=== PATIENT | male | born 1965 | race Caucasian/White ===

== ENCOUNTER 2022-04-04 04:56 | Emergency (ER) | payer BC, SELFPAY ==
[2022-04-04] VITALS (16 sets, daily range): BP systolic 125–189; BP diastolic 82–121; PULSE 53–92; RESP 9–28; O2SAT 95–100; BMI 29.6
--- NOTE | 2022-04-04 05:13 | XR_ITS ---
Final Report Patient: LEONEL ORANTES Facility:?[facility] Patient ID:?[id number] Site Patient ID:?[id number]. Site :?[id number] Study:?XRay Chest -04/04/2022 6:00:01 AM Ordering Physician:?Cheo Snyder Final Report: INDICATION: Chest pain. TECHNIQUE: Chest 1 view. COMPARISON: None. FINDINGS: No focal consolidation, pleural effusion, or pneumothorax. Heart size upper limits of normal. Normal pulmonary vascularity. The bones are unremarkable. IMPRESSION: No acute cardiopulmonary findings. Dictated by Sandi Hernandes MD @ 04/04/2022 6:17:18 AM (Electronic Signature)
[2022-04-04] MEDS: NITROGLYCERIN 0.4 MG TAB.SUBL SUBLINGUAL ×2 (05:15→05:33)
[2022-04-04] MEDS: ASPIRIN 81 MG TAB.CHEW 324 MG PO (05:15)
--- NOTE | 2022-04-04 05:16 | ED_ITS ---
HPI - Chest Pain General Time Seen by Provider: 05:10 <Claudio Grider MD - Last Filed: 04/04/22 08:15> Date Seen: 04/04/22 <Claudio Grider MD - Last Filed: 04/04/22 08:15> Chief Complaint: Chest Pain <Claudio Grider MD - Last Filed: 04/04/22 08:15> Stated Complaint: Chest pain <Claudio Grider MD - Last Filed: 04/04/22 08:15> Time Seen by Provider: 04/04/22 05:07 <Claudio Grider MD - Last Filed: 04/04/22 08:15> Source: patient <Claudio Grider MD - Last Filed: 04/04/22 08:15> Mode of arrival: ambulatory <Claudio Grider MD - Last Filed: 04/04/22 08:15> Limitations: no limitations <Claudio Grider MD - Last Filed: 04/04/22 08:15> History of Present Illness HPI narrative: Sudden onset of midsternal chest pain without radiation that came on at rest. This is associated with diaphoresis but no nausea, vomiting, dyspnea. No previous episodes. Risk factors include male gender and smoking. Blood pressure is elevated but he has no history of hypertension. <Claudio Grider MD - Last Filed: 04/04/22 08:15> MD complaint: chest pain <Claudio Grider MD - Last Filed: 04/04/22 08:15> Onset (ago): hour(s) ( 1 hour ago) <Claudio Grider MD - Last Filed: 04/04/22 08:15> Timing of current episode: constant <Claudio Grider MD - Last Filed: 04/04/22 08:15> Prior episodes: No <Claudio Grider MD - Last Filed: 04/04/22 08:15> Onset: during rest <Claudio Grider MD - Last Filed: 04/04/22 08:15> Pain location: substernal <Claudio Grider MD - Last Filed: 04/04/22 08:15> Pain radiation: none <Claudio Grider MD - Last Filed: 04/04/22 08:15> Severity: severe <Claudio Grider MD - Last Filed: 04/04/22 08:15> Quality: aching and sharp <Claudio Grider MD - Last Filed: 04/04/22 08:15> Relieving factors: nothing <Claudio Grider MD - Last Filed: 04/04/22 08:15> Exacerbating factors: nothing <Claudio Grider MD - Last Filed: 04/04/22 08:15> Associated symptoms: diaphoresis <Claudio Grider MD - Last Filed: 04/04/22 08:15> Treatment prior to arrival: none <Claudio Grider MD - Last Filed: 04/04/22 08:15> Risk Factors Coronary artery disease risk factors: smoking history <Claudio Grider MD - Last Filed: 04/04/22 08:15> Thoracic aortic dissection risk factors: none <Claudio Grider MD - Last Filed: 04/04/22 08:15> Related Data Home Medications: Home Medications Medication Instructions Recorded Confirmed No Known Home Medications 04/04/22 04/04/22 <Claudio Grider MD - Last Filed: 04/04/22 08:15> Allergies/Adverse Reactions: Allergies Allergy/AdvReac Type Severity Reaction Status Date / Time No Known Drug Allergies Allergy Verified 04/04/22 07:00 <Claudio Grider MD - Last Filed: 04/04/22 08:15> Review of Systems Status of ROS Reports: 10 or more systems reviewed and unremarkable except as noted in History and below <Claudio Grider MD - Last Filed: 04/04/22 08:15> [facility] Medical History: Medical History (Updated 04/04/22 @ 08:06 by Claudio Grider MD) Seizure <Claudio Grider MD - Last Filed: 04/04/22 08:15> Surgical History: Surgical History (Updated 04/04/22 @ 05:16 by Claudio Grider MD) No history of previous surgery <Claudio Grider MD - Last Filed: 04/04/22 08:15> Family History: Family History (Updated 04/04/22 @ 05:15 by Claudio Grider MD) Other Coronary artery disease <Claudio Grider MD - Last Filed: 04/04/22 08:15> Social History: Social History (Updated 04/04/22 @ 05:15 by Claudio Grider MD) Narrative: 1/2 pack per day smoker, works at [employer], no local doctor Smoking Status: Current every day smoker What tobacco products do you use: cigarettes Do you use any of these nicotine containing products: None Second hand tobacco smoke exposure: No How often do you have a drink containing alcohol: never AUDIT-C Alcohol total score: 0 Non-prescribed substance use: denies use <Claudio Grider MD - Last Filed: 04/04/22 08:15> Exam Const Vital Signs, click to edit/add: Vital Signs - 24 hr 04/04/22 05:09 04/04/22 05:10 04/04/22 05:12 Pulse Rate [Right] 62 57 L Respiratory Rate 20 17 Blood Pressure [Left Upper Arm] 189/121 H 187/115 H Pulse Oximetry 98 98 95 04/04/22 05:20 04/04/22 05:30 04/04/22 05:40 Pulse Rate [Right] 59 L 56 L 53 L Respiratory Rate 24 9 L 13 Blood Pressure [Left Upper Arm] 138/88 144/102 H 125/82 Pulse Oximetry 95 95 95 04/04/22 05:50 04/04/22 06:00 Pulse Rate [Right] 60 56 L Respiratory Rate 25 H 10 L Blood Pressure [Left Upper Arm] 138/95 H Pulse Oximetry 97 97 Blood pressure is elevated <Claudio Grider MD - Last Filed: 04/04/22 08:15> Documenting provider has reviewed patient's vital signs: yes <Claudio Grider MD - Last Filed: 04/04/22 08:15> Common normals: oriented x3, alert and well nourished <Claudio Grider MD - Last Filed: 04/04/22 08:15> General appearance: cooperative and diaphoretic <Claudio Grider MD - Last Filed: 04/04/22 08:15> Orientation/consciousness: Yes awake, Yes oriented to person, Yes oriented to place and Yes oriented to time <Claudio Grider MD - Last Filed: 04/04/22 08:15> HENDE Common normals: normocephalic, head/scalp atraumatic, hearing grossly normal bilaterally, external ears normal, EAC's normal, TM's normal bilaterally, external nose normal, nasal mucous membranes and turbinates normal, moist oral mucous membranes, oropharynx normal, dentition normal and gingiva normal <Claudio Grider MD - Last Filed: 04/04/22 08:15> Head and scalp: normocephalic and atraumatic <Claudio Grider MD - Last Filed: 04/04/22 08:15> Nose: external nose normal and nasal mucous membranes and turbinates normal <Claudio Grider MD - Last Filed: 04/04/22 08:15> External ear: external ears normal <Claudio Grider MD - Last Filed: 04/04/22 08:15> External auditory canal: EAC's normal <Claudio Grider MD - Last Filed: 04/04/22 08:15> Tympanic membrane: TM's normal bilaterally <Claudio Grider MD - Last Filed: 04/04/22 08:15> Neck & C-Spine Common normals: full ROM, no lymphadenopathy, no JVD, thyroid normal and no carotid bruits <Claudio Grider MD - Last Filed: 04/04/22 08:15> General: normal visual inspection and trachea midline <Claudio Grider MD - Last Filed: 04/04/22 08:15> Thyroid: thyroid normal <Claudio Grider MD - Last Filed: 04/04/22 08:15> Carotids: normal carotid upstroke <Claudio Grider MD - Last Filed: 04/04/22 08:15> Lymph Lymphatic: no lymphadenopathy noted <Claudio Grider MD - Last Filed: 04/04/22 08:15> Chest Common normals: inspection of chest normal and palpation of chest normal <Claudio Grider MD - Last Filed: 04/04/22 08:15> Chest: symmetrical chest wall rise <Claudio Grider MD - Last Filed: 04/04/22 08:15> Resp Common normals: normal respiratory effort and clear to auscultation bilaterally <Claudio Grider MD - Last Filed: 04/04/22 08:15> Effort & inspection: able to speak in complete sentences and symmetric chest movement <Claudio Grider MD - Last Filed: 04/04/22 08:15> Auscultation: clear to auscultation bilaterally <Claudio Grider MD - Last Filed: 04/04/22 08:15> Cardio Common normals: no JVD, regular rate, regular rhythm, S1 normal heart sound, S2 normal heart sound and peripheral pulses 2+ throughout <Claudio Grider MD - Last Filed: 04/04/22 08:15> Rate: regular rate <Claudio Grider MD - Last Filed: 04/04/22 08:15> Rhythm: regular rhythm <Claudio Grider MD - Last Filed: 04/04/22 08:15> Heart sounds: S1 normal and S2 normal <Claudio Grider MD - Last Filed: 04/04/22 08:15> Peripheral pulses: pulses 2+ throughout <Claudio Grider MD - Last Filed: 04/04/22 08:15> GI Common normals: Normal to inspection, nondistended, normoactive bowel sounds present <Claudio Grider MD - Last Filed: 04/04/22 08:15> Auscultation: normoactive bowel sounds <Claudio Grider MD - Last Filed: 04/04/22 08:15> Extremity Common normals: normal to inspection, normal capillary refill and no pedal edema <Claudio Grider MD - Last Filed: 04/04/22 08:15> Neuro Common normals: oriented x3 <Claudio Grider MD - Last Filed: 04/04/22 08:15> Sensorium/orientation: awake, alert, oriented to person, oriented to place and oriented to time <Claudio Grider MD - Last Filed: 04/04/22 08:15> Skin Common normals: no rashes or lesions noted <Claudio Grider MD - Last Filed: 04/04/22 08:15> General skin exam: no rashes or lesions noted <Claudio Grider MD - Last Filed: 04/04/22 08:15> Course Course Hospital Course: patient seen and examined. His history and presentation are consistent with cardiac chest pain. Initial EKG shows normal sinus rhythm with a rate of 60. There is ST elevation in V1 through V3. He is given aspirin 325 mg orally and nitroglycerin 0.4 mg sublingual. Initially we had a difficult time getting an IV. <Claudio Grider MD - Last Filed: 04/04/22 08:15> Reevaluation(s) Reevaluation #1: No pain relief with the initial nitro. Second nitro was given along 2 mg of IV morphine. <Claudio Grider MD - Last Filed: 04/04/22 08:15> Time: 05:36 <Claudio Grider MD - Last Filed: 04/04/22 08:15> Reevaluation #2: After 2nd 2 mg dose of morphine and a GI cocktail his pain is still essentially unchanged he is no longer diaphoretic. His blood pressure has improved. <Claudio Grider MD - Last Filed: 04/04/22 08:15> Time: 06:34 <Claudio Grider MD - Last Filed: 04/04/22 08:15> Reevaluation #3: Second point of care troponin went from 0.01 up to 0.06. The patient continued to have chest pain unrelieved by sublingual nitro and [address] was done to rule out dissection and that was normal. Another EKG was done which shows further elevation of the ST segments in V2 and V3. This EKG was faxed to Dr. Terrazas at [facility] who agrees that this meets level one criteria. He is given heparin 4000 units and Ticagrelor 180 mg PO. A nitro drip was started and patient was transferred to [facility] on the level one protocol. <Claudio Grider MD - Last Filed: 04/04/22 08:15> Vital Signs Vital signs: Initial Vital Signs Temperature Source Temporal Artery Scan 04/04/22 05:09 Pulse Rate 62 04/04/22 05:09 Pulse Rhythm 04/04/22 05:09 Respiratory Rate 20 04/04/22 05:09 Blood Pressure 189/121 H 04/04/22 05:09 Blood Pressure Mean 143 04/04/22 05:09 Blood Pressure Position Sitting 04/04/22 05:09 Pulse Oximetry 98 04/04/22 05:09 Vital Signs Pulse Rate 62 04/04/22 05:09 Respiratory Rate 20 04/04/22 05:09 Blood Pressure 189/121 H 04/04/22 05:09 Pulse Oximetry 98 04/04/22 05:09 Pulse Rate 56 L 04/04/22 06:00 Respiratory Rate 10 L 04/04/22 06:00 Blood Pressure 138/95 H 04/04/22 06:00 Pulse Oximetry 97 04/04/22 06:00 <Claudio Grider MD - Last Filed: 04/04/22 08:15> MDM - Chest Pain Lab Data Labs: Lab Results 04/04/22 04/04/22 04/04/22 Range/Units 05:20 05:20 05:20 WBC 12.21 H (4.50-11.00) K/uL RBC 4.86 (4.30-5.90) m/uL Hgb 14.2 (13.5-17.5) gm/dL Hct 42.9 (37.0-53.0) % MCV 88 (80-100) fL MCH 29 (26-34) pg MCHC 33 (32-36) gm/dL RDW Coeff of Wolfgang 13.3 (11.5-15.5) % Plt Count 215 (140-440) K/uL Neut % (Auto) 52.6 (42.0-72.0) % Lymph % (Auto) 38.0 (20-44) % Spencer % (Auto) 6.8 (0.0-11.0) % Eos % (Auto) 2.0 (0.0-7.0) % Baso % (Auto) 0.4 (0.0-3.0) % Neut # (Auto) 6.40 (1.7-7.0) K/uL Lymph # (Auto) 4.60 H (0.90-2.90) K/uL Spencer # (Auto) 0.80 (0.00-0.90) K/UL Eos # (Auto) 0.20 (0.00-0.50) K/uL Baso # (Auto) 0.00 (0.00-0.30) K/uL Abs Immat Gran (auto) 0.03 (0.00-0.30) K/uL INR 1.19 H (0.91-1.10) APTT 30 (23-33) Seconds D-Dimer Quant (PE/DVT) 0.35 (0.00-0.50) ug/ml Sodium 139 (135-149) mmol/L Potassium 4.5 (3.6-5.1) mmol/L Chloride 109 (96-114) mmol/L Carbon Dioxide 20 (20-32) mmol/L BUN 19 (7-30) mg/dL Creatinine 0.8 (0.5-1.5) mg/dL Estimated Creat Clear 100.94 Glucose 141 H (60-115) mg/dL Calcium 8.6 (8.4-10.6) mg/dL POC Troponin I (0.01-0.04) ng/ml 04/04/22 04/04/22 Range/Units 05:21 07:23 WBC (4.50-11.00) K/uL RBC (4.30-5.90) m/uL Hgb (13.5-17.5) gm/dL Hct (37.0-53.0) % MCV (80-100) fL MCH (26-34) pg MCHC (32-36) gm/dL RDW Coeff of Wolfgang (11.5-15.5) % Plt Count (140-440) K/uL Neut % (Auto) (42.0-72.0) % Lymph % (Auto) (20-44) % Spencer % (Auto) (0.0-11.0) % Eos % (Auto) (0.0-7.0) % Baso % (Auto) (0.0-3.0) % Neut # (Auto) (1.7-7.0) K/uL Lymph # (Auto) (0.90-2.90) K/uL Spencer # (Auto) (0.00-0.90) K/UL Eos # (Auto) (0.00-0.50) K/uL Baso # (Auto) (0.00-0.30) K/uL Abs Immat Gran (auto) (0.00-0.30) K/uL INR (0.91-1.10) APTT (23-33) Seconds D-Dimer Quant (PE/DVT) (0.00-0.50) ug/ml Sodium (135-149) mmol/L Potassium (3.6-5.1) mmol/L Chloride (96-114) mmol/L Carbon Dioxide (20-32) mmol/L BUN (7-30) mg/dL Creatinine (0.5-1.5) mg/dL Estimated Creat Clear Glucose (60-115) mg/dL Calcium (8.4-10.6) mg/dL POC Troponin I 0.01 0.06 H (0.01-0.04) ng/ml <Claudio Grider MD - Last Filed: 04/04/22 08:15> Critical Care Time Critical Care Time Critical Care Time: Yes Attestation: The patient required my highest level preparedness to intervene emergently and I personally spent this critical care time directly and personally managing the patient. This critical care time included: Obtaining a history; Examining the patient; Pulse oximetry; Ordering and reviewing of studies; Arranging urgent treatment with development of a management plan; Evaluation of patients response to treatment; Frequent reassessment discussions with other providers. This critical care time was performed to assess and manage the high probability of imminent life-threatening deterioration that could result in multiorgan failure. It was exclusive of separate billable procedures and treating other patients and teaching time. <Claudio Grider MD - Last Filed: 04/04/22 08:15> Total Critical Care Time in Minutes: 60 <Claudio Grider MD - Last Filed: 04/04/22 08:15> Discharge Plan Discharge Clinical Impression: ST elevation LA (STEMI) <Claudio Grider MD - Last Filed: 04/04/22 08:15> Patient Disposition: [facility] <Claudio Grider MD - Last Filed: 04/04/22 08:15> Condition: Critical <Claudio Grider MD - Last Filed: 04/04/22 08:15> Prescriptions: No Action No Known Home Medications 0RF <Claudio Grider MD - Last Filed: 04/04/22 08:15> Stand Alone Forms: [facility] Info Instructions <Claudio Grider MD - Last Filed: 04/04/22 08:15>
[2022-04-04 05:27] LABS: Slide Review Reflex No
[2022-04-04 05:29] LABS: Basophils Percent Auto 0.4 % (0.0-3.0); Hematocrit 42.9 % (37.0-53.0); Hemoglobin* 14.2 gm/dL (13.5-17.5); Immature Granulocytes Abs Auto 0.03 K/uL (0.00-0.30); Mean Corpuscular HGB Conc 33 gm/dL (32-36); Mean Corpuscular Hemoglobin 29 pg (26-34); Mean Corpuscular Volume 88 fL (80-100); Monocytes Percent Auto 6.8 % (0.0-11.0); Neutrophils Percent Auto 52.6 % (42.0-72.0); Platelet Count* 215 K/uL (140-440); RDW Coefficient of Variation % 13.3 % (11.5-15.5); Red Blood Count 4.86 m/uL (4.30-5.90); White Blood Count* 12.21 K/uL (4.50-11.00)
[2022-04-04] MEDS: MORPHINE 2 MG/ML inj IVP ×2 (05:37→06:15)
[2022-04-04 05:41] LABS: Chloride* 109 mmol/L (96-114); Sodium* 139 mmol/L (135-149)
[2022-04-04 05:42] LABS: Potassium* 4.5 mmol/L (3.6-5.1)
[2022-04-04 05:44] LABS: Creatinine* 0.8 mg/dL (0.5-1.5); Est. Creatinine Clearance* 100.94; Estimated Glomerular Filt Rate 104.51
[2022-04-04 05:45] LABS: Blood Urea Nitrogen* 19 mg/dL (7-30); Calcium* 8.6 mg/dL (8.4-10.6); Carbon Dioxide* 20 mmol/L (20-32); Glucose* 141 mg/dL (60-115); INR 1.19 (0.91-1.10); Partial Thromboplastin Time* 30 Seconds (23-33); Prothrombin Time 15.5 Seconds
[2022-04-04 05:48] LABS: D Dimer Quantitative* 0.35 ug/ml (0.00-0.50)
[2022-04-04 05:50] LABS: Troponin, Point-of-Care* 0.01 ng/ml (0.01-0.04)
[2022-04-04] MEDS: GI COCKTAIL (VISC LIDO/ANTACID) 30 ML PO (06:15)
--- NOTE | 2022-04-04 06:36 | CT_ITS ---
Final Report Patient: LEONEL ORANTES Facility:?[facility] Patient ID:?[id number] Site Patient ID:?[id number]. Site :?[id number] Study:?CT Chest/Abd/Pelvis Angio W/ and W/O Dissection-04/04/2022 7:04:47 AM Ordering Physician:Estevan Snyder Final Report: INDICATION: Chest pain. COMPARISON: Chest radiograph 04/04/2022. TECHNIQUE: CT of the chest without IV contrast followed by CTA of the chest, abdomen, and pelvis with 95 cc of Isovue 370 IV contrast. Coronal and sagittal reconstructions. 3D post processing was performed. FINDINGS: Chest: Normal heart size. Conventional three vessel aortic arch. The great vessels are widely patent. The thoracic aorta is normal in caliber without evidence of dissection, intramural hematoma, or penetrating atheromatous ulcer. Mild coronary artery calcifications. Normal caliber central pulmonary arteries. No large central pulmonary embolism. No pericardial effusion. No thoracic lymphadenopathy. Tiny low attenuation nodule in the inferior left thyroid lobe. No focal consolidation, pleural effusion, or pneumothorax. No pulmonary nodules identified. No bronchial wall thickening. Focus of debris in the trachea. Degenerative changes of the spine with multiple Schmorl`s nodes. Chronic appearing anterior wedging of T9. Abdomen/Pelvis: The abdominal aorta and bilateral iliac arteries are normal in caliber without evidence of dissection or penetrating atheromatous ulcer. Mild narrowing of the origin of the celiac artery without obvious plaque. The superior mesenteric artery, inferior mesenteric artery, and bilateral renal arteries are patent without significant stenosis. Replaced right hepatic artery to the SMA. Accessory left renal artery. Moderate calcified and noncalcified atheromatous plaque in the infrarenal abdominal aorta. Evaluation of the solid organs is somewhat limited by arterial phase of contrast. The liver, spleen, pancreas, and adrenal glands are negative. Tiny splenule. Cholelithiasis. No biliary dilation. Symmetric enhancement of the kidneys. No hydronephrosis or ureteral dilation. No obstructing urinary calculi identified. Decompressed urinary bladder. Mildly enlarged prostate gland with calcifications. No bowel dilation. Colonic diverticulosis without evidence of diverticulitis. Negative appendix. No intraperitoneal free air or fluid. Small fat containing umbilical and right inguinal hernias. No lymphadenopathy. Degenerative changes of the spine and pubic symphysis. Mild retrolisthesis of L1 on L2 and L2 on L3. IMPRESSION: 1. No evidence of aortic aneurysm or dissection. Mild narrowing of the origin of the celiac artery without obvious plaque. 2. No other acute findings in the chest, abdomen, or pelvis. 3. Colonic diverticulosis. 4. Mildly enlarged prostate gland. Please note that all CT scans at this facility use dose modulation, iterative reconstruction, and/or weight-based dosing when appropriate to reduce radiation dose to as low as reasonably achievable. Dictated by Sandi Hernandes MD @ 04/04/2022 7:54:24 AM (Electronic Signature)
--- NOTE | 2022-04-04 07:08 | PC.NURSE ---
Report to CURTIS Rousseau
--- NOTE | 2022-04-04 07:25 | ED.NURSE ---
0725 [facility] updated with trop 0.11, [facility] left with pt to [facility]
--- NOTE | 2022-04-04 07:37 | ED.NURSE ---
report received. care taken over. ED trop 0.[address] simeon in seeing pt.
[2022-04-04 07:41] LABS: Troponin, Point-of-Care* 0.06 ng/ml (0.01-0.04)
[2022-04-04] MEDS: NITROGLYCERIN/DEXTROSE 25,000 MCG/250 ML BOTTLE 3 MCG IVPB (07:52)
[2022-04-04] MEDS: HEPARIN 25,000 UNIT/500 ML BAG 20 UNIT IV (08:01)
[2022-04-04] MEDS: TICAGRELOR 90 MG TABLET 180 MG PO (08:01)
[2022-04-04] MEDS: HEPARIN 5,000 UNIT/0.5 ML INJ 4000 UNIT IVP (08:01)
--- NOTE | 2022-04-04 08:18 | ED.NURSE ---
report given to nolberto at [facility]. [facility] here to transfer pt to [facility].
== END 2022-04-04 08:30 ==
PROVIDERS: Family Medicine; Emergency Provider Family Medicine; PCP Internal Medicine
DX: I21.3 ST elevation (STEMI) myocardial infarction of unspecified site (principal)
CPT/HCPCS: 96365; 96366; 96375; 36415; 71045; 71270; 74178; 80048; 84484; 85025; 85027; 85379; 85610; 85730; 93005; 99285; 99291; A9270; J1644; J2270; Q9967

== ENCOUNTER 2022-04-04 08:10 | Outpatient (CLI) | payer BC, SELFPAY | END 2022-04-04 08:11 | disposition home or self-care (01) | LOC: AMB 04-15 14:15 | PROVIDERS: PCP Internal Medicine; Visit Provider Family Medicine | DX: I21.4 Non-ST elevation (NSTEMI) myocardial infarction (principal) | CPT/HCPCS: A0425; A0434 ==